=== PATIENT | male | born 1990 ===

== ENCOUNTER 2017-09-19 10:29 | Emergency (ER) | payer OTHER ==
[2017-09-19 10:51] VITALS: RESP 18; TEMP 98.4
[2017-09-19] MEDS ORDERED: Lidocaine 1% Inj (20ml) IJ STA (11:11)
--- NOTE | 2017-09-19 11:19 | ED PDOC ---
Arrival/HPI - General Chief Complaint: Abnormal Skin Integrity Time Seen by Provider: 09/19/17 11:02 Historian: Patient - History of Present Illness Narrative History of Present Illness (Text): 09/19/17 11:13 Pt is a 26 yr old male who presents to the ED with a right dorsal thumb laceration while taking the door of an oven off to clean. Pt states the laceration bled for awhile and then stopped with application of pressure. States he has had a tetanus booster in the last year. Does not have insurance therefore needs to keep expenses down. Denies numbness or loss of motor function , psychiatric condition, or any other complaints Time/Duration: Prior to Arrival Symptom Onset: Sudden Quality: Aching Severity Level: 4 Activities at Onset: Rest Context: Home Past Medical History - Provider Review Nursing Documentation Reviewed: Yes - Travel History Have you recently traveled outside [place] w/in the past 3 mons?: Yes If Yes, travel location?: [facility] - Infectious Disease Hx of Infectious Diseases: None - Psychiatric Hx Substance Use: No - Anesthesia Hx Anesthesia: No Family/Social History - Physician Review Nursing Documentation Reviewed: Yes Family/Social History: Unknown Family HX Smoking Status: Unknown If Ever Smoked Hx Alcohol Use: No Hx Substance Use: No Allergies/Home Meds Allergies/Adverse Reactions: Allergies No Known Allergies Allergy (Verified 09/19/17 10:51) Review of Systems - Review of Systems Systems not reviewed;Unavailable: Acuity of Condition Constitutional: Normal Respiratory: Normal Cardiovascular: Normal Gastrointestinal: Normal Genitourinary Male: Normal Musculoskeletal: Normal Skin: Normal Neurological: Normal Endocrine: Normal Hemo/Lymphatic: Normal Psychiatric: Normal Physical Exam Vital Signs Reviewed: Yes Vital Signs Temp Pulse Resp BP Pulse Ox 09/19/17 12:48 98.4 F 61 18 115/72 100 09/19/17 10:47 98.4 F 58 L 18 113/74 99 Temperature: Afebrile Blood Pressure: Normal Pulse: Regular Respiratory Rate: Normal Appearance: Positive for: Well-Appearing, Non-Toxic, Comfortable Pain Distress: Mild Mental Status: Positive for: Alert and Oriented X 3 - Systems Exam Head: Present: Atraumatic, Normocephalic Respiratory/Chest: Present: Good Air Exchange. No: Respiratory Distress, Accessory Muscle Use Cardiovascular: Present: Regular Rate and Rhythm, Normal S1, S2. No: Murmurs Abdomen: No: Tenderness, Distention, Peritoneal Signs Back: Present: Normal Inspection Upper Extremity: Present: Normal Inspection. No: Cyanosis, Edema Lower Extremity: Present: Normal Inspection. No: Edema Neurological: Present: GCS=15, CN II-XII Intact, Speech Normal Skin: Present: Warm, Dry, Normal Color, Laceration (right dorsal surface right hand inferior to thumb). No: Rashes Psychiatric: Present: Alert, Oriented x 3, Normal Insight, Normal Concentration Medical Decision Making ED Course and Treatment: 09/19/17 11:19 Impression Pt is a 26 yr old male who [id number] to the ED with a right dorsal thumb laceration while taking the door of an oven off to clean it. 2.3cm angled lac on the right dorsal surface of hand, inferior to thumb Plan Lidocaine 1% anesthetic, power irrigation, lac repair assess and dispo with instructions for f/u suture removal in 7 days 09/19/17 19:35 Progress Note Pt tolerated procedure well Discussed wound care and return to ED for suture removal and follow up care hemodynamically stable on dc - Medication Orders Current Medication Orders: Discontinued Medications Cephalexin Monohydrate (Keflex) 250 mg PO STAT STA PRN Reason: Protocol Stop: 09/19/17 11:24 Last Admin: 09/19/17 11:37 Dose: 250 mg Lidocaine HCl (Lidocaine 1% (20ml)) 20 ml IJ STAT STA Stop: 09/19/17 11:12 Last Admin: 09/19/17 11:37 Dose: 20 ml - Procedure PROCEDURE NOTE (Text): 09/19/17 19:20 PROCEDURE: LACERATION REPAIR Performed by the emergency provider Location: Left dorsal hand inferior to thumb Length: 2.5 cm Description: "clean wound edges","no foreign bodies" Distal CMS: ~Normal.~ No deficits.~ Neurovascularly intact. Anesthesia: Lidocaine 1% 5cc Preparation: The wound was cleaned with NS and [place]. The area was prepped and draped in the usual sterile fashion.~ Exploration: ~ The wound was explored and no foreign bodies were found. Procedure: The wound was closed with 5.0 nylon.~ There was approximation.~ In total, 7 were used. Post-Procedure: ~Good closure and hemostasis.~ The patient tolerated the procedure well and there were no complications.~ CSM remains intact.~ Post procedure dressing applied. Disposition/Present on Arrival - Present on Arrival Any Indicators Present on Arrival: Yes History of DVT/PE: No History of Uncontrolled Diabetes: No Urinary Catheter: No History of Decub. Ulcer: No History Surgical Site Infection Following: None - Disposition Have Diagnosis and Disposition been Completed?: Yes Diagnosis: Laceration of hand, right Disposition: HOME/ ROUTINE Disposition Time: 12:33 Patient Plan: Discharge Condition: GOOD Discharge Instructions (ExitCare): Wound Care (DC), Laceration Repair With Stitches (DC) Print Language: [place] Additional Instructions: LAM ARMSTRONG, thank you for letting us take care of you today. Your provider was Janelle Gaines MD and AMBER Min and you were treated for Laceration of the HAND(R). The emergency medical care you received today was directed at your acute symptoms. If you were prescribed any medication, please fill it and take as directed. It may take several days for your symptoms to resolve. Return to the Emergency Department if your symptoms worsen, do not improve, or if you have any other problems. Return in 7-10 days for removal of stitches Please contact your doctor or call one of the physicians/clinics you have been referred to that are listed on the Patient Visit Information form that is included in your discharge packet. Bring any paperwork you were given at discharge with you along with any medications you are taking to your follow up visit. Our treatment cannot replace ongoing medical care by a primary care provider outside of the emergency department. Thank you for allowing the [facility] team to be part of your care today. Prescriptions: Cephalexin [Keflex] 500 mg PO Q12 5 Days #10 cap Forms: WORK NOTE, [employer] (Slovak)
[2017-09-19 12:49] VITALS: BP 115/72; PULSE 61; O2SAT 100
== END 2017-09-19 12:48 | disposition home or self-care (01) ==
LOC: ED 10:29
DX: S61.411A Laceration without foreign body of right hand, initial encounter (principal); W45.8XXA Other foreign body or object entering through skin, initial encounter; Y93.E9 Activity, other interior property and clothing maintenance; Y92.89 Other specified places as the place of occurrence of the external cause